=== PATIENT | male | born 1975 | race Caucasian/White ===

== ENCOUNTER → 2018-01-08 | Outpatient (REF) | payer BC, OTHER | LOC: M LAB REF 14:52 | DX: J33.9 Nasal polyp, unspecified (principal) | CPT/HCPCS: 88305 ==

== ENCOUNTER → 2018-04-02 | Outpatient (CLI) | payer OTHER | LOC: M EKG 12:44 | DX: I10 Essential (primary) hypertension (principal); G47.9 Sleep disorder, unspecified | CPT/HCPCS: 93005 ==

== ENCOUNTER 2018-04-07 10:17 | Day surgery (SDC) | payer OTHER ==
[~2018-04-07 10:17] MED LIST: LR 1,000 ML IV
[2018-04-07] MEDS ORDERED: MIDAZOLAM INJ 2 MG/2 ML VIAL (J2250) As Ordered (11:27)
[2018-04-07] MEDS ORDERED: fentaNYL 100 MCG/2 ML INJECTION (J3010) As Ordered ×2 (11:27→13:43)
[2018-04-07] MEDS ORDERED: PROPOFOL 200 MG/20 ML VIAL As Ordered (11:28)
[2018-04-07] MEDS ORDERED: ROCURONIUM BROMIDE 50 MG/5 ML VIAL As Ordered (11:28)
[2018-04-07] MEDS ORDERED: LIDOCAINE 2% INJ 100 MG/5 ML SDV (FOR ANES.) As Ordered (11:28)
[2018-04-07] MEDS ORDERED: dexameTHASONE 4 MG/ML 1ML VIAL (J1100) As Ordered ×2 (12:31)
[2018-04-07] MEDS ORDERED: REMIFENTANIL 1MG 3ML VIAL As Ordered (12:45)
[2018-04-07] MEDS ORDERED: ONDANSETRON 4MG/2ML VIAL (J2405) As Ordered (12:59)
[2018-04-07] MEDS: OXYMETAZOLINE NASAL SPRAY (AFRIN) As Ordered (13:19)
[2018-04-07] MEDS: LIDOCAINE W/EPINEPHRINE 1% 20ML VIAL As Ordered (13:19)
[2018-04-07] MEDS: METHYLENE BLUE 0.5% (5MG/ML) 10 ML AMP (PROVAYBLUE)(Q9968 PER 1MG) As Ordered (13:20)
[2018-04-07] MEDS ORDERED: LABETALOL HCL 100 MG/20 ML VIAL As Ordered (13:43)
[2018-04-07] MEDS: LABETALOL HCL 100 MG/20 ML VIAL IV ×5 (13:45→14:07)
[2018-04-07] MEDS: fentaNYL 100 MCG/2 ML INJECTION (J3010) IV ×4 (13:50→14:05)
[2018-04-07] MEDS ORDERED: LABETALOL HCL 100 MG/20 ML VIAL IV (13:50)
[2018-04-07] MEDS ORDERED: PERCOCET 5MG/325MG TAB PO (14:00)
[2018-04-07] MEDS ORDERED: ONDANSETRON 4MG/2ML VIAL (J2405) IV (14:00)
[2018-04-07] MEDS ORDERED: IBUPROFEN 800 MG TAB PO (14:00)
[2018-04-07] MEDS ORDERED: LR 1,000 ML IV (14:00)
[2018-04-07] MEDS ORDERED: hydrALAZINE INJ 20 MG/ML VIAL As Ordered (14:28)
[2018-04-07] MEDS ORDERED: SUGAMMADEX SODIUM 500 MG/5 ML VIAL (BRIDION) As Ordered (14:51)
[2018-04-07] MEDS: PERCOCET 5MG/325MG TAB PO ×2 (14:53→15:34)
[2018-04-07] MEDS ORDERED: hydrALAZINE INJ 20 MG/ML VIAL IV (15:15)
== END 2018-04-07 15:40 | disposition home or self-care (01) ==
LOC: M SDC 10:17
DX: J34.2 Deviated nasal septum (principal); J31.0 Chronic rhinitis; I10 Essential (primary) hypertension; E78.5 Hyperlipidemia, unspecified; F41.9 Anxiety disorder, unspecified; F32.9 Major depressive disorder, single episode, unspecified; G47.30 Sleep apnea, unspecified; F43.10 Post-traumatic stress disorder, unspecified; Z79.899 Other long term (current) drug therapy
CPT/HCPCS: 30520

== ENCOUNTER 2018-08-07 10:17 | Emergency (ER) | payer OTHER ==
[2018-08-07] MEDS: NS 1,000 ML IV (11:00)
[2018-08-07 11:44] LABS: BASO % 0.4 % (0.0-1.0); HEMATOCRIT 42.4 % (42.0-52.0); HEMOGLOBIN 14.9 g/dl (13.5-17.5); IMMATURE GRANULOCYTE % 0.2 % (0-3.0); LYMPH # 2.4 10^3/uL (1.5-4.5); LYMPH % 42.7 % (24.0-44.0); MEAN CORPUSCULAR HEMOGLOBIN 30.5 pg (27.0-33.0); MEAN CORPUSCULAR HGB CONC 35.1 g/dl (32.0-36.5); MEAN CORPUSCULAR VOLUME 86.7 fl (80.0-96.0); MONO # 0.8 10^3/uL (0.0-0.8); MONO % 13.4 % (0.0-5.0); NEUTROPHILS # 2.5 10^3/uL (1.8-7.7); NEUTROPHILS % 43.3 % (36.0-66.0); PLATELET COUNT, AUTOMATED 269 10^3/uL (150-450); RED BLOOD COUNT 4.89 10^6/uL (4.30-6.10); RED CELL DISTRIBUTION WIDTH 11.9 % (11.5-14.5); WHITE BLOOD COUNT 5.7 10^3/uL (4.0-10.0)
[2018-08-07 12:05] LABS: ALBUMIN 3.8 GM/DL (3.2-5.2); ALKALINE PHOSPHATASE 71 U/L (45-117); ALT/SGPT 53 U/L (12-78); ANION GAP 8 MEQ/L (8-16); AST/SGOT 26 U/L (7-37); BILIRUBIN,DIRECT < 0.1 MG/DL (0.0-0.2); BILIRUBIN,TOTAL 0.3 MG/DL (0.2-1.0); BLOOD UREA NITROGEN 11 MG/DL (7-18); CALCIUM LEVEL 8.7 MG/DL (8.5-10.1); CARBON DIOXIDE LEVEL 28 MEQ/L (21-32); CHLORIDE LEVEL 107 MEQ/L (98-107); CPK CREATINE PHOSPHOKINASE 220 U/L (39-308); CREATININE FOR GFR 1.13 MG/DL (0.70-1.30); GLOMERULAR FILTRATION RATE > 60.0 (>60); GLUCOSE, FASTING 75 MG/DL (70-100); LIPASE 173 U/L (73-393); MB/CK RELATIVE INDEX 1.05 (< OR =4); POTASSIUM SERUM 3.7 MEQ/L (3.5-5.1); SODIUM LEVEL 143 MEQ/L (136-145); TOTAL PROTEIN 7.6 GM/DL (6.4-8.2); TROPONIN I < 0.02 NG/ML (< 0.10)
== END 2018-08-07 12:39 | disposition home or self-care (01) ==
LOC: M ED 10:17
DX: I10 Essential (primary) hypertension (principal); E78.5 Hyperlipidemia, unspecified; F33.9 Major depressive disorder, recurrent, unspecified; F43.10 Post-traumatic stress disorder, unspecified; G47.33 Obstructive sleep apnea (adult) (pediatric); E73.9 Lactose intolerance, unspecified; Z79.899 Other long term (current) drug therapy
CPT/HCPCS: 71045